=== PATIENT | female | born 2000 | race Caucasian/White ===

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

== ENCOUNTER → 2020-02-03 | Outpatient (CLI) | payer BC ==
--- NOTE | 2020-02-03 15:37 | RAD ---
DATE: 02/03/2020 1:51 PM EXAM: BREAST ultrasound LEFT HISTORY: 19-year-old woman with tender medial left breast lump. COMPARISON: None. Technique: Targeted ultrasound of the medial left breast in the area of patient's reported palpable tenderness performed, focused at the 9:00 position 12 cm from the nipple. FINDINGS: Predominantly fatty breast tissue is seen with no discrete mass identified to explain patient's area of palpable concern. IMPRESSION: No sonographic evidence of malignancy. BI-RADS CATEGORY: 1 NEGATIVE RECOMMENDED FOLLOW-UP: CLIN FOLLOW UP IMAGING CLINICALLY INDICATED Age appropriate annual screening mammography is recommended, unless clinically indicated sooner based on symptoms or change in physical exam. Discussed with patient with her mother present. Their questions were answered to their satisfaction. PQRS compliance statement: Patient information was entered into a reminder system with a target due date for the next mammogram. Mammography is a sensitive method for finding small breast cancers, but it does not detect them all and is not a substitute for careful clinical examination. A negative mammogram does not negate a clinically suspicious finding and should not result in delay in biopsying a clinically suspicious abnormality. "Our facility is accredited by the [employer] Mammography Program."
== END | disposition home or self-care (01) ==
LOC: US 13:41
PROVIDERS: ATTEND Nurse Practitioner Family
DX: N63.20 Unspecified lump in the left breast, unspecified quadrant (principal)
CPT/HCPCS: 76641